=== PATIENT | male | born 1965 | race Caucasian/White ===

== ENCOUNTER 2020-08-18 18:59 | Emergency (ER) | payer OTHER ==
[~2020-08-18] VITALS: Ht 172.7 cm; Wt 117.9 kg
[2020-08-18 20:30] LABS: URINE BILIRUBIN NEGATIVE (Negative); URINE BLOOD NEGATIVE (Negative); URINE CLARITY CLEAR; URINE COLOR YELLOW; URINE GLUCOSE-RANDOM* NEGATIVE (Negative); URINE KETONES NEGATIVE (Negative); URINE LEUKOCYTES-REFLEX NEGATIVE (Negative); URINE NITRITE-REFLEX NEGATIVE (Negative); URINE PROTEIN (DIPSTICK) NEGATIVE (Negative); URINE SPECIFIC GRAVITY >= 1.030 (1.005-1.035); URINE UROBILINOGEN 0.2 E.U./dl (0.2-1.0)
[2020-08-18 20:33] LABS: ABSOLUTE NEUTROPHILS 5.4 thou/uL (1.4-8.2); MONOCYTES 6.8 % (1.0-8.0)
[2020-08-18 20:34] LABS: BASOPHILS 0.9 % (0.0-2.0); EOSINOPHILS 3.1 % (0.0-3.0); HEMATOCRIT 45.8 % (42.0-52.0); HEMOGLOBIN 15.6 gm/dL (14.0-18.0); LYMPHOCYTES 32.8 % (24.0-44.0); MCH 29.8 pg (26.0-34.0); MCHC 34.1 g/dL (28.0-37.0); MCV 87.5 fL (80.0-100.0); PLATELET COUNT 252 thou/uL (150-400); POLYS 56.4 % (36.0-66.0); RBC 5.24 mil/uL (4.50-6.00); RDW 14.1 % (10.5-14.5); WBC 9.5 thou/uL (4.0-11.0)
[2020-08-18 20:40] LABS: ANION GAP 6 mmol/L (7-16); BUN 15 mg/dL (7-18); CALCIUM 9.6 mg/dL (8.5-10.1); CHLORIDE 102 mmol/L (98-107); CO2 29 mmol/L (21-32); CREATININE 1.1 mg/dL (0.7-1.3); GLUCOSE 90 mg/dL (74-106); SODIUM 137 mmol/L (136-145)
[2020-08-18 20:48] LABS: POTASSIUM 5.2 mmol/L (3.5-5.1)
[2020-08-18 20:50] LABS: ALBUMIN 3.9 g/dL (3.4-5.0); MAGNESIUM 2.1 mg/dL (1.8-2.4); SGPT 63 U/L (30-65); TOTAL BILIRUBIN 0.9 mg/dL (0.2-1.0); TOTAL PROTEIN 7.2 g/dL (6.4-8.2); TROPONIN-I <0.06 ng/mL (<0.06)
[2020-08-18 20:51] LABS: SGOT 48 U/L (15-37)
[2020-08-18 21:22] VITALS: BP 133/72
--- NOTE | 2020-08-19 07:16 | EKG ---
[place] [address] [facility] [place] [address] ELECTROCARDIOGRAM REPORT Name: FELIXROSINA D Room #: [facility]USAlyce#: [id number] Admission: 08/18/20 Attend Phys: Discharge: 08/18/20 Date of : 67 Report #: [id number] [facility] ED Test Date: 2020-08-18 Test Time: 19:24:09 Pat Name: ROSINA WASHINGTON Department: Room: Gender: M Drywall Installer: [id number] : 1965 Requested By: Pedro Pablo Brownlee Order Number: [id number] MD: Chavez Demarco Measurements Intervals [place] Rate: 60 P: 42 MT: 137 QRS: 22 QRSD: 94 T: 205 QT: 402 QTc: 402 Interpretive Statements Sinus rhythm Left atrial enlargement Repol abnrm suggests ischemia, anterolateral Baseline wander in lead(s) V1,V2,V4 No previous ECG available for comparison Electronically Signed On 08-19-2020 7:16:02 PE MANAGER by Chavez Demarco [email or web address] <ELECTRONICALLY SIGNED> By: Chavez Demarco MD, [facility] 08/19/20 0716 192 23 Chavez Demarco MD, FACC /EPI
== END 2020-08-18 21:23 | disposition home or self-care (01) ==
LOC: ER 18:59
PROVIDERS: Emergency Medicine
DX: I10 Essential (primary) hypertension (principal); H57.89 Other specified disorders of eye and adnexa; Z87.891 Personal history of nicotine dependence; Z88.0 Allergy status to penicillin